=== PATIENT | male | born 1980 | race African-American/Black ===

== ENCOUNTER 2023-01-20 04:05 | Emergency (ER) | payer SELFPAY ==
[~2023-01-20] VITALS: Ht 167.6 cm; Wt 66.0 kg
[2023-01-20 04:16] VITALS: BP 102/80
[2023-01-20] MEDS ORDERED: IBUPROFEN 600MG TABLET PO ONE (04:45)
== END 2023-01-20 06:02 | disposition home or self-care (01) ==
LOC: ER 04:05
DX: S60.211A Contusion of right wrist, initial encounter (principal); S30.0XXA Contusion of lower back and pelvis, initial encounter; D64.9 Anemia, unspecified; J45.909 Unspecified asthma, uncomplicated; X58.XXXA Exposure to other specified factors, initial encounter; Y93.89 Activity, other specified; Y92.89 Other specified places as the place of occurrence of the external cause; Y99.8 Other external cause status
CPT/HCPCS: 73110; 99283